=== PATIENT | female | born 1955 | race Caucasian/White ===

== ENCOUNTER → 2018-03-27 | Outpatient (CLI) | payer BC ==
--- NOTE | 2018-03-27 13:39 | RADIOLOGY IMAGING REPORT ---
FACILITY: [facility] PATIENT NAME: Maria Isabel Encarnacion : 1955 MR: [id number] V: [id number] EXAM DATE: ORDERING PHYSICIAN: ADRI LOVE TECHNOLOGIST: Location: [facility] Patient: Maria Isabel Encarnacion : 1955 Visit/Account:[id number] Date of Sevice: 03/27/2018 DEXA Scan Clinical history: Postmenopausal. Comparison: DEXA scan from 02/27/2015. LUMBAR SPINE: The bone mineral density (BMD) measured from L1-L4 correlates with a Z-score of 0.3 and a T-score of -1.2 which is osteopenia as defined by the World Health Organization. The corresponding risk of frac ture in the lumbar spine is 2-3 times increased compared with a young adult reference population. Th is value has increase by 1.7 % since the prior study. More than 5% change is considered significant. HIP: Bone mineral density (BMD) measured in the LEFT total hip region correlates with a Z-score 0.3 and a T-score of -0.8 which is normal as defined by the World Health Organization. The corresponding risk of fracture in the hip is 1-2 t imes increased compared to a young adult reference population. This value has decrease by 4.7 % since the prior study. More than 5% change is considered significant. T score left femoral neck -1.1 Bone mineral density (BMD) measured in the Femoral Neck region measures 0.887 g/cm?. IMPRESSION: 1. Lumbar spine: Osteopenia. There has been 1.7% increase in the bone mineral density since the pre vious exam. 2. Left Total Hip: Normal. There has been 4.7% decrease in the bone mineral density since the previ ous exam. 3. Femoral Neck: Bone Mineral Density is 0.887 g/cm? The next DEXA scan of this patient should include the following sites: L1-L4 and the left hip. FRAX? WHO Fracture Risk Assessment Tool link: <http://www.shef.ac.uk/FRAX/tool.jsp?locationValue=9> PLEASE NOTE: 1) The World Health Organization defines low BMD as follows: T-score Normal > -1 Osteopenia < -1 and > -2.5 Osteoporosis < -2.5 without fractures Established osteoporosis < -2.5 with fractures 2) In general, you may wish to consider: Diagnosis Treatment Follow-up DEXA Normal BMD Prevention 2-3 years Osteopenia Prevention/therapy 1-2 years Osteoporosis Therapy Yearly 3) Fracture risk estimated from the T-score is more accurate for vertebral fractures (often spontane ous) than for hip fractures. Report Dictated By: Bernadette Dewitt MD at 03/27/2018 1:34 PM Report E-Signed By: Bernadette Dewitt MD at 03/27/2018 1:35 PM WSN:[email or web address]
--- NOTE | 2018-03-27 14:58 | RADIOLOGY IMAGING REPORT ---
FACILITY: [facility] [place] PATIENT NAME: CARLOS MARTINEZ : [id number] MR: [id number] V: [id number] EXAM DATE: ORDERING PHYSICIAN: ADRI LOVE TECHNOLOGIST: Trice Roger PROCEDURE:BILATERAL DIGITAL SCREENING MAMMOGRAM WITH CAD ASSISTED INTERPRETATION & 3D TOMOSYNTHESIS COMPARISON:Prior mammograms 03/15/17, 03/03/16, 02/27/15, 05/23/14. INDICATIONS:SCREENING FINDINGS: A small to moderate amount of fibroglandular tissue is seen throughout the breasts. The parenchymal pattern has remained stable allowing for difference in mammographic technique & patient positioning. There is no evidence of malignant appearing mass, malignant appearing calcifications or other secondary sign of malignancy in either breast. DIAGNOSTIC CATEGORY 1--NEGATIVE. RECOMMENDATIONS: ROUTINE MAMMOGRAM AND CLINICAL EVALUATION. IMPRESSION: BIRADS 1: Negative. No significant abnormality is seen. Dictated by: Bernadette Dewitt M.D. on 03/27/2018 at 14:47 Transcribed by: IGOR on 03/27/2018 at 14:49 Approved by: Bernadette Dewitt M.D. on 03/27/2018 at 14:57 [facility]
== END ==
LOC: MAMO 00:28
PROVIDERS: ATTEND Nurse Practitioner Family
DX: Z13.820 Encounter for screening for osteoporosis (principal); Z12.31 Encounter for screening mammogram for malignant neoplasm of breast; M85.80 Other specified disorders of bone density and structure, unspecified site; Z80.3 Family history of malignant neoplasm of breast
CPT/HCPCS: 77063; 77067; 77080